=== PATIENT | male | born 1970 | race Caucasian/White ===

== ENCOUNTER 2016-12-19 02:03 | Inpatient (IN) | payer MEDICARE, MEDICAID ==
[~2016-12-19] VITALS: Ht 157.5 cm; Wt 54.9 kg
[2016-12-19] MEDS ORDERED: ONDANSETRON 2MG/ML, 2ML IVPush ONE (02:30)
[2016-12-19] MEDS ORDERED: SODIUM CHLORIDE 0.9% 1,000ML IVBOLUS ONE ×2 (02:30→05:30)
[2016-12-19] MEDS ORDERED: MORPHINE SULFATE 4 MG/ML, 1ML IVPush PRN (02:30)
[2016-12-19] MEDS ORDERED: ONDANSETRON 2MG/ML, 2ML ONE (02:43)
[2016-12-19] MEDS ORDERED: MORPHINE SULFATE 4 MG/ML, 1ML ONE ×2 (02:43→08:05)
[2016-12-19] MEDS ORDERED: OMEP40CA6 PO (02:55)
[2016-12-19 02:57] LABS: ASPARTATE AMINO TRANSFERASE 17 U/L (15-37); BLOOD UREA NITROGEN 17 mg/dL (7-18)
[2016-12-19] MEDS ORDERED: OMNIPAQUE 350 MG/ML, 100ML BOTTLE ONE ×2 (03:46→06:28)
[2016-12-19] MEDS ORDERED: CEFTRIAXONE PMX 1GM/50ML 50 ML ONE (05:23)
[2016-12-19] MEDS ORDERED: AZITHROMYCIN 500 MG in SODIUM CHLORIDE 0.9% 250 ML IV ONE (05:30)
[2016-12-19] MEDS ORDERED: CEFTRIAXONE 1,000 MG in SODIUM CHLORIDE 0.9% 50 ML IVPB ONE ×2 (05:30→09:00)
[2016-12-19] MEDS ORDERED: CEFTRIAXONE 1,000 MG in SODIUM CHLORIDE 0.9% 50 ML IVPB SCH (07:00)
[2016-12-19] MEDS ORDERED: DOCUSATE 100 MG CAPSULE PO PRN (08:00)
[2016-12-19] MEDS ORDERED: HYDROcodone/APAP 5/325 TABLET PO PRN (08:00)
[2016-12-19] MEDS ORDERED: CEFTRIAXONE 1,000 MG IM SCH (08:00)
[2016-12-19] MEDS ORDERED: POLYETHYLENE GLYCOL 17 GM PACKET PO PRN (08:00)
[2016-12-19] MEDS ORDERED: ONDANSETRON 2MG/ML, 2ML IVPush PRN (08:00)
[2016-12-19] MEDS ORDERED: ACETAMINOPHEN 500 MG TABLET PO PRN (08:00)
[2016-12-19] MEDS ORDERED: ONDANSETRON ODT 4 MG PO PRN (08:00)
[2016-12-19] MEDS ORDERED: GUAIFENESIN/DM 200-20MG, 10ML UDC PO PRN (08:00)
[2016-12-19] MEDS ORDERED: ENALAPRILAT 1.25 MG/ML, 2ML IVPush PRN (08:00)
[2016-12-19] MEDS: morphine SULFATE 10 MG/ML, 1ML IVPush PRN (08:13)
[2016-12-19] MEDS: NS + 20MEQ KCL 1,000 ML IV SCH ×2 (11:45→20:28)
[2016-12-19] MEDS: FAMOTIDINE 20 MG TABLET PO SCH ×2 (11:45→20:47)
[2016-12-19] MEDS: OMEPRAZOLE 20 MG CAPSULE.DR PO SCH (11:45)
[2016-12-19] MEDS: SENNA/DOCUSATE TABLET PO SCH (11:45)
[2016-12-19] MEDS: ENOXAPARIN 40 MG/0.4 ML SQ SCH (11:46)
[2016-12-19 14:00] VITALS: BP 135/75
[2016-12-19 19:20] VITALS: BP 96/61
[2016-12-20 01:00] VITALS: BP 124/68
[2016-12-20] MEDS: morphine SULFATE 10 MG/ML, 1ML IVPush PRN (04:52)
[2016-12-20 05:21] LABS: BLOOD UREA NITROGEN 14 mg/dL (7-18)
[2016-12-20 05:26] LABS: ASPARTATE AMINO TRANSFERASE 14 U/L (15-37)
[2016-12-20] MEDS: NS + 20MEQ KCL 1,000 ML IV SCH (06:32)
[2016-12-20] MEDS ORDERED: CEFTRIAXONE 1,000 MG in SODIUM CHLORIDE 0.9% 50 ML IVPB SCH (07:00)
[2016-12-20] MEDS ORDERED: CEFTRIAXONE PMX 1GM/50ML 50 ML IV SCH (07:00)
[2016-12-20] MEDS ORDERED: AZITHROMYCIN 250 MG in SODIUM CHLORIDE 0.9% 250 ML IV SCH (08:00)
[2016-12-20] MEDS ORDERED: ALBUTEROL SULFATE 2.5 MG/3 ML ONE (08:17)
[2016-12-20] MEDS ORDERED: ALBUTEROL SULFATE 2.5 MG/3 ML NPPB PRN (08:30)
[2016-12-20 08:45] VITALS: BP 107/66
[2016-12-20] MEDS: SENNA/DOCUSATE TABLET PO SCH (09:00)
[2016-12-20] MEDS: OMEPRAZOLE 20 MG CAPSULE.DR PO SCH (09:00)
[2016-12-20] MEDS: FAMOTIDINE 20 MG TABLET PO SCH (09:00)
[2016-12-20] MEDS: ENOXAPARIN 40 MG/0.4 ML SQ SCH (09:47)
[2016-12-20] MEDS ORDERED: AZIT250T PO (13:26)
[2016-12-20] MEDS ORDERED: CEFD300C37 PO (13:26)
[2016-12-20] MEDS ORDERED: ONDA4TAB13 PO (13:26)
[2016-12-20 14:00] VITALS: BP 110/71
[2016-12-20] MEDS ORDERED: PNEUMOCOCCAL 23 VACCINE IM-VACC ONE (16:00)
== END 2016-12-20 17:15 | disposition home or self-care (01) | DRG 194 ==
LOC: ED 05:22 → EDIP 06:59 → 3NW 08:33
PROVIDERS: ADMIT Family Medicine; ATTEND Family Medicine
DX: J18.9 Pneumonia, unspecified organism (principal); R65.10 Systemic inflammatory response syndrome (SIRS) of non-infectious origin without acute organ dysfunction; K21.9 Gastro-esophageal reflux disease without esophagitis; Q90.9 Down syndrome, unspecified; Z86.718 Personal history of other venous thrombosis and embolism; Z90.49 Acquired absence of other specified parts of digestive tract; Z79.899 Other long term (current) drug therapy
CPT/HCPCS: 36415; 71020; 71275; 74177; 80053; 81003; 83605; 83690; 84145; 85025; 85379; 87040; 90732; 94640; 96361; 96365; 96366; 96367; 96375; J0456; J0696; J1650; J2405; J3480; Q9967; J2270; J7030; J7050

== ENCOUNTER 2017-07-17 03:51 | Emergency (ER) | payer MEDICARE, MEDICAID ==
[~2017-07-17] VITALS: Ht 160 cm; Wt 64.0 kg
[~2017-07-17 03:51] MED LIST: AZIT250T PO; CEFD300C37 PO; OMEP40CA6 PO; ONDA4TAB13 PO
[2017-07-17] MEDS ORDERED: SODIUM CHLORIDE 0.9% 1,000 ML IV ONE (05:27)
[2017-07-17] MEDS ORDERED: SODIUM CHLORIDE 0.9% 1,000ML IVBOLUS ONE (05:30)
[2017-07-17] MEDS ORDERED: SODIUM CHLORIDE FLUSH 10ML SYR IVF ONE (05:30)
[2017-07-17 06:10] VITALS: BP 107/63
[2017-07-17 06:24] LABS: BASOPHILS # (AUTO) 0.02 x10^3/uL (0-0.1); BASOPHILS % (AUTO) 0 % (0-1); EOSINOPHILS # (AUTO) 0.01 x10^3/uL (0-0.4); EOSINOPHILS % (AUTO) 0 % (1-7); LYMPHOCYTES # (AUTO) 1.05 x10^3/uL (1-3.4); LYMPHOCYTES % (AUTO) 9 % (22-44); MD NO; MEAN CORPUSCULAR HGB CONC 32.8 g/dL (33.2-36.2); MEAN CORPUSCULAR VOLUME 94.3 fL (81-97); MEAN PLATELET VOLUME 7.7 fL (7.4-10.4); MONOCYTES # (AUTO) 0.92 x10^3/uL (0.2-0.8); MONOCYTES % (AUTO) 8 % (2-9); NEUTROPHILS # (AUTO) 10.16 x10^3/uL (1.8-6.8); NEUTROPHILS % (AUTO) 84 % (42-75); PLATELET COUNT 241 x10^3/uL (130-400); RED BLOOD COUNT 5.72 x10^6/uL (4.38-5.82); RED CELL DISTRIBUTION WIDTH 14.5 % (9.4-14.8)
[2017-07-17 06:28] LABS: ALANINE AMINOTRANSFERASE 40 U/L (12-78); ALBUMIN 3.7 g/dL (3.4-5.0); ANION GAP 5 mmol/L (5-15); CALCIUM 8.8 mg/dL (8.5-10.1); CHLORIDE 106 mmol/L (98-107); CREATININE 1.08 mg/dL (0.7-1.3)
[2017-07-17 06:30] LABS: ALKALINE PHOSPHATASE 121 U/L (45-117); BILIRUBIN,TOTAL 1.1 mg/dL (0.2-1.0)
[2017-07-17] MEDS ORDERED: MAALOX/HYOSCYAMINE/LIDOCAINE 45 ML BTL PO ONE (07:00)
[2017-07-17] MEDS ORDERED: ACETAMINOPHEN 325 MG TABLET PO ONE (07:00)
[2017-07-17] MEDS ORDERED: ACETAMINOPHEN 325 MG TABLET ONE (07:25)
[2017-07-17] MEDS ORDERED: MAALOX/HYOSCYAMINE/LIDOCAINE 45 ML BTL ONE (07:25)
== END 2017-07-17 13:54 | disposition home or self-care (01) ==
LOC: ED 08:01
DX: S09.90XA Unspecified injury of head, initial encounter (principal); G44.219 Episodic tension-type headache, not intractable; K29.00 Acute gastritis without bleeding; W19.XXXA Unspecified fall, initial encounter; Y93.89 Activity, other specified; Y92.009 Unspecified place in unspecified non-institutional (private) residence as the place of occurrence of the external cause; Y99.8 Other external cause status; Q90.9 Down syndrome, unspecified
CPT/HCPCS: 36415; 70450; 70551; 80053; 85025; 93005; 96360; 96361; 99285; J7030

== ENCOUNTER → 2017-09-19 | Outpatient (CLI) | payer MEDICARE, MEDICAID | END | disposition home or self-care (01) | LOC: CVU 06:50 | PROVIDERS: ATTEND Family Medicine | DX: I65.23 Occlusion and stenosis of bilateral carotid arteries (principal); Q90.9 Down syndrome, unspecified | CPT/HCPCS: 93880 ==

== ENCOUNTER → 2017-11-25 | Outpatient (CLI) | payer MEDICARE, MEDICAID | END | disposition home or self-care (01) | LOC: CFH 13:37 | PROVIDERS: ATTEND Family Medicine | DX: G44.329 Chronic post-traumatic headache, not intractable (principal) | CPT/HCPCS: 70551 ==

== ENCOUNTER 2019-12-24 11:45 | Outpatient (CLI) | payer MEDICARE, MEDICAID ==
[~2019-12-24 11:45] MED LIST changes: +OMEP40CA42 PO; -OMEP40CA6 PO
== END 2019-12-24 23:59 | disposition home or self-care (01) ==
LOC: RAD 11:45
PROVIDERS: ATTEND Family Medicine
DX: Z02.9 Encounter for administrative examinations, unspecified (principal)

== ENCOUNTER 2019-12-28 12:49 | Outpatient (CLI) | payer MEDICARE, MEDICAID | END 2019-12-28 23:59 | disposition home or self-care (01) | LOC: RAD 12:49 | PROVIDERS: ATTEND Family Medicine | DX: K21.9 Gastro-esophageal reflux disease without esophagitis (principal); K22.2 Esophageal obstruction | CPT/HCPCS: 74220 ==

== ENCOUNTER 2020-01-04 08:38 | Day surgery (SDC) | payer MEDICARE, MEDICAID ==
[~2020-01-04] VITALS: Ht 160 cm; Wt 54.0 kg
[2020-01-04] MEDS ORDERED: CHLORHEXIDINE 15 ML UDC MM STA (09:01)
[2020-01-04 09:03] VITALS: BP 131/74
[2020-01-04] MEDS ORDERED: CHLORHEXIDINE 15 ML UDC ONE (09:12)
[2020-01-04] MEDS ORDERED: PLEASE ENTER HEIGHT AND WEIGHT MC SCH (09:30)
[2020-01-04] MEDS ORDERED: NORT50CA52 PO (10:04)
[2020-01-04] MEDS ORDERED: OMEP-110 PO (10:04)
[2020-01-04] MEDS ORDERED: LACTATED RINGERS 1,000 ML IV SCH (11:00)
[2020-01-04] MEDS ORDERED: FENTANYL PF 100 MCG/2ML ONE (11:50)
[2020-01-04] MEDS ORDERED: MIDAZOLAM 1 MG/ML, 2ML ONE (11:50)
[2020-01-04] MEDS ORDERED: LIDOCAINE-MPF 2% ,5ML ONE (11:57)
[2020-01-04] MEDS ORDERED: PROPOFOL 10 MG/ML, 20ML ONE (11:57)
[2020-01-04] MEDS ORDERED: ONDANSETRON 2MG/ML, 2ML IVPush PRN (12:30)
== END 2020-01-04 13:25 | disposition home or self-care (01) ==
LOC: OUT 08:38
PROVIDERS: ATTEND Internal Medicine
DX: R13.10 Dysphagia, unspecified (principal); Z03.818 Encounter for observation for suspected exposure to other biological agents ruled out; K21.0 Gastro-esophageal reflux disease with esophagitis; Q90.9 Down syndrome, unspecified; Z79.899 Other long term (current) drug therapy; Z90.49 Acquired absence of other specified parts of digestive tract; Z98.890 Other specified postprocedural states; Z82.49 Family history of ischemic heart disease and other diseases of the circulatory system; Z80.3 Family history of malignant neoplasm of breast
CPT/HCPCS: 43239; 43249; 87635; 88305; C1725; J2250; J2704; J3010

== ENCOUNTER 2020-02-18 09:37 | Outpatient (CLI) | payer MEDICARE, MEDICAID ==
[~2020-02-18 09:37] MED LIST changes: +NORT50CA52 PO; +OMEP-110 PO
[2020-04-15] MEDS ORDERED: FAMO40TA4 PO (02:54)
[2020-04-15] MEDS ORDERED: VERA120T8 PO (02:54)
[2020-04-15] MEDS ORDERED: DEXL60CA2 PO (02:54)
[2020-04-15] MEDS ORDERED: NORT25CA78 PO (11:49)
[2020-04-16] MEDS ORDERED: METR500T PO (12:19)
[2020-04-16] MEDS ORDERED: AMOX1TAB64 PO (12:19)
== END 2020-02-18 23:59 | disposition home or self-care (01) ==
LOC: RAD 09:37
PROVIDERS: ATTEND Nurse Practitioner Family
DX: R13.10 Dysphagia, unspecified (principal)
CPT/HCPCS: 74230

== ENCOUNTER 2020-04-14 05:15 | Emergency (ER) | payer MEDICARE, MEDICAID ==
[~2020-04-14] VITALS: Ht 160 cm; Wt 65.0 kg
--- NOTE | 2020-04-14 05:55 | NUR ---
50 year old male to ED for diffuse abdominal pain, nausea, and lower back pain x 1 day. Per caregiver, patient has not had fever, diarrhea, vomiting, or urinary symptoms.
[2020-04-14] MEDS ORDERED: ONDANSETRON 2MG/ML, 2ML ONE (05:59)
[2020-04-14] MEDS ORDERED: MAALOX/HYOSCYAMINE/LIDOCAINE 45 ML BTL ONE (05:59)
[2020-04-14] MEDS ORDERED: MAALOX/HYOSCYAMINE/LIDOCAINE 45 ML BTL PO ONE (06:00)
[2020-04-14] MEDS ORDERED: ONDANSETRON 2MG/ML, 2ML IVPush ONE (06:00)
[2020-04-14] MEDS ORDERED: SODIUM CHLORIDE FLUSH 10ML SYR IVF ONE (06:00)
[2020-04-14] MEDS ORDERED: SODIUM CHLORIDE 0.9% 1,000ML IVBOLUS ONE (06:00)
[2020-04-14 06:14] LABS: MICROSCOPIC AUTO
[2020-04-14 06:22] LABS: MEAN CORPUSCULAR HEMOGLOBIN 30.3 pg (27.5-34.5); MEAN CORPUSCULAR HGB CONC 32.2 g/dL (33.2-36.2); MEAN PLATELET VOLUME 7.4 fL (7.4-10.4); PLATELET COUNT 235 x10^3/uL (130-400); RED BLOOD COUNT 5.65 x10^6/uL (4.38-5.82); RED CELL DISTRIBUTION WIDTH 14.8 % (9.4-14.8)
--- NOTE | 2020-04-14 06:22 | NUR ---
Patient's pain seemed to improve after having a bowel movement.
[2020-04-14 06:29] LABS: ALANINE AMINOTRANSFERASE 27 U/L (12-78); ALBUMIN 3.6 g/dL (3.4-5.0); ANION GAP 9 mmol/L (5-15); CHLORIDE 103 mmol/L (98-107); CREATININE 1.38 mg/dL (0.7-1.3)
[2020-04-14 06:34] LABS: ALKALINE PHOSPHATASE 87 U/L (45-117); BILIRUBIN,TOTAL 0.4 mg/dL (0.2-1.0); TOTAL PROTEIN 7.4 g/dL (6.4-8.2); TROPONIN I < 0.015 ng/mL (0.000-0.045)
--- NOTE | 2020-04-14 06:51 | NUR ---
Patient returned from CT scan. Report given to oncoming RN
[2020-04-14] MEDS ORDERED: OMNIPAQUE 350 MG/ML, 100ML BOTTLE ONE (06:57)
[2020-04-14 07:00] LABS: BASOPHILS # (AUTO) 0.04 x10^3/uL (0-0.1); BASOPHILS % (AUTO) 0 % (0-1); EOSINOPHILS # (AUTO) 0.01 x10^3/uL (0-0.4); EOSINOPHILS % (AUTO) 0 % (1-7); LYMPHOCYTES # (AUTO) 1.04 x10^3/uL (1-3.4); LYMPHOCYTES % (AUTO) 7 % (22-44); MD SCAN; MONOCYTES # (AUTO) 0.57 x10^3/uL (0.2-0.8); MONOCYTES % (AUTO) 4 % (2-9); NEUTROPHILS # (AUTO) 14.08 x10^3/uL (1.8-6.8); NEUTROPHILS % (AUTO) 90 % (42-75)
[2020-04-14 07:04] VITALS: BP 124/77
--- NOTE | 2020-04-14 07:05 | NUR ---
PATIENT RESTING IN GURNEY, MOTHER AT BEDSIDE, WARM BLANKET PROVIDED, CALL LIGHT WITHIN REACH, NO FURTHER NEEDS AT THIS TIME.
--- NOTE | 2020-04-14 07:40 | NUR ---
MINDI SAUCEDA AT BEDSIDE TO DISCUSS POC
--- NOTE | 2020-04-14 08:27 | NUR ---
Patient/Caregiver given discharge instructions and prescription and they have confirmed that they understand the instructions, all questions answered. Patient provided clothing. Patient wheeled to discharged desk with mother at side in stable condition.
[2020-04-14] MEDS ORDERED: DEXILANT (16:11)
[2020-04-15] MEDS ORDERED: VERA120T8 PO (02:54)
[2020-04-15] MEDS ORDERED: DEXL60CA2 PO (02:54)
[2020-04-15] MEDS ORDERED: FAMO40TA4 PO (02:54)
[2020-04-15] MEDS ORDERED: NORT25CA78 PO (11:49)
[2020-04-16] MEDS ORDERED: AMOX1TAB64 PO (12:19)
[2020-04-16] MEDS ORDERED: METR500T PO (12:19)
== END 2020-04-14 08:27 | disposition home or self-care (01) ==
LOC: ED 06:54
DX: R11.2 Nausea with vomiting, unspecified (principal); K21.9 Gastro-esophageal reflux disease without esophagitis
CPT/HCPCS: 36415; 74022; 74177; 80053; 81001; 83605; 83690; 84484; 85025; 87086; 93005; 96361; 96374; 99285; J2405; J7030; Q9967